=== PATIENT | male | born 1980 | race Caucasian/White ===

== ENCOUNTER 2016-04-16 15:08 | Emergency (ER) | payer OTHER | END 2016-04-16 17:25 | disposition home or self-care (01) | LOC: D.ER 15:08 | DX: M77.9 Enthesopathy, unspecified (principal) ==

== ENCOUNTER → 2016-05-13 10:29 | Outpatient (CLI) | payer OTHER | END | disposition home or self-care (01) | LOC: D.MRI 10:29 | DX: M23.612 Other spontaneous disruption of anterior cruciate ligament of left knee (principal) ==